=== PATIENT | male | born 1950 | race Caucasian/White ===

== ENCOUNTER 2021-03-15 12:32 | Outpatient (CLI) | payer MEDICARE, OTHER, SELFPAY ==
--- NOTE | ~2021-03-15 | CT_ITS ---
EXAMINATION: CT shoulder LT wo con DATE: 03/15/2021 12:50 INDICATION: Left shoulder osteoarthritis and pain TECHNIQUE: High resolution computed tomography (CT) of the left shoulder was performed without intrav enous contrast. Additional sagittal and coronal reconstructions were performed. Automated exposure co ntrol and iterative reconstruction technique were employed. The dose-length product was 535.70 mGy-cm . COMPARISON: Left shoulder radiographs dated 12/05/2020 FINDINGS: Bone alignment is normal. No fracture. Osteoarthritis at the left glenohumeral joint characterized by moderate to severe inferior predominant nonuniform joint space narrowing and moderate-sized marginal osteophytes surrounding the glenoid and large marginal osteophytes along the inferomedial humeral he ad. No subarticular cystic changes. There are multiple loose osteochondral bodies, the largest at the axillary recess and with several smaller loose osteochondral bodies in the deep subscapular recess. Cystic change at the superior facet of the greater tuberosity which can be seen in the setting of chr onic rotator cuff disease. No asymmetric muscular atrophy of the rotator cuff or shoulder girdle. Sev ere acromioclavicular osteoarthritis with severe joint space narrowing, subarticular cystic changes a nd small marginal osteophytes. Visualized portions of the left lung are clear. No pathologically enla rged lymphadenopathy at the left axilla visualized left neck and chest. IMPRESSION: 1. 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 Reviewed, dictated and finalized at location A. IMPRESSION: 1. Moderate to severe left glenohumeral osteoarthritis and severe acromioclavic ular osteoarthritis.
== END 2021-03-15 12:33 | disposition home or self-care (01) ==
LOC: ANHIMG 12:36
PROVIDERS: PCP Internal Medicine; Visit Provider Orthopaedic Surgery
DX: M19.012 Primary osteoarthritis, left shoulder (principal)
CPT/HCPCS: 73200